=== PATIENT | male | born 1970 | race Caucasian/White ===

== ENCOUNTER 2019-04-30 07:51 | Emergency (ER) | payer BC ==
[2019-04-30 08:09] VITALS: BP 152/90
--- NOTE | 2019-04-30 08:35 | UC ---
Bite Injury/Animal HPI - HPI Summary HPI Summary: 48-year-old male comes in with a chief complaint of tick bite to the left side of his chest. He noticed the tick there this morning. Last time is on the pearl was 2 days ago. There is some erythema around the bite no fevers or chills feels well otherwise. - History of Current Complaint Chief Complaint: UCGeneralIllness Stated Complaint: TICK BITE Time Seen by Provider: 04/30/19 08:28 Pain Intensity: 0 - Allergies/Home Medications Allergies/Adverse Reactions: Allergies Allergy/AdvReac Type Severity Reaction Status Date / Time hydrocodone Allergy Nausea And Verified 04/30/19 08:01 Vomiting Penicillins Allergy Hives Verified 04/30/19 08:01 PMH/Surg Hx/FS Hx/Imm Hx Previously Healthy: Yes - Surgical History Surgical History: Yes Surgery Procedure, Year, and Place: 2004 [facility]. 05/2013 CYSTO STENT X 2 -[facility] [place]. 05/2013 CYSTO WITH STENT REMOVAL- [facility] [place]. 11/23/2012 CYSTOSCOPY LEFT RETROGRADE PYELOGRAM, LEFT URETEROSCOPY, STONE EXTRACTION, URETERAL STENT INSERTION ON LEFT, [facility] [place] - Family History Known Family History: Positive: Non-Contributory - Social History Alcohol Use: Occasionally Substance Use Type: None Smoking Status (MU): Former Smoker Amount Used/How Often: PRESENTLY CHEWS TOBACCO Have You Smoked in the Last Year: No When Did the Patient Quit Smoking/Using Tobacco: ABOUT 1996 Review of Systems All Other Systems Reviewed And Are Negative: Yes Constitutional: Positive: Negative Skin: Positive: Other - SEE HPI Eyes: Positive: Negative ENT: Positive: Negative Respiratory: Positive: Negative Cardiovascular: Positive: Negative Gastrointestinal: Positive: Negative Motor: Positive: Negative Neurovascular: Positive: Negative Musculoskeletal: Positive: Negative Neurological: Positive: Negative Psychological: Positive: Negative Is Patient Immunocompromised?: No Physical Exam Triage Information Reviewed: Yes Appearance: Well-Appearing, No Pain Distress, Well-Nourished Vital Signs: Initial Vital Signs Temp 97.8 F 04/30/19 08:05 Pulse 84 04/30/19 08:05 Resp 18 04/30/19 08:05 BP 152/90 04/30/19 08:05 Pulse Ox 98 04/30/19 08:05 Vital Signs Reviewed: Yes Eye Exam: Normal Eyes: Positive: Conjunctiva Clear Neck: Positive: Supple Respiratory: Positive: No respiratory distress Musculoskeletal: Positive: Strength Intact, ROM Intact Neurological: Positive: Alert Psychological: Positive: Normal Response To Family, Age Appropriate Behavior Skin: Positive: Other - On the left side of the chest there is a 1 cm area of deep erythema with a tick in it. I used the posterior and remove the tick completely with mouth parts. No bull's-eye rash. Bite Injury Course/Dx - Differential Dx/Diagnosis Provider Diagnosis: Tick bite of chest wall Discharge ED - Sign-Out/Discharge Documenting (check all that apply): Patient Departure All imaging exams completed and their final reports reviewed: No Studies - Discharge Plan Condition: Stable Disposition: HOME Prescriptions: DOXYcycline CAP(*) [DOXYcycline 100MG CAP(*)] 200 mg PO DAILY #2 cap Patient Education Materials: Tick Bite (ED) Referrals: Galilea Elmore MD [Primary Care Provider] - Additional Instructions: FOLLOW UP WITH YOUR DOCTOR IF NOT COMPLETELY IMPROVED. GET RECHECKED SOONER IF YOUR CONDITION WORSENS; BULLS EYE RASH, SYMPTOMS OF LYME DISEASE OR ANY QUESTIONS OR CONCERNS. - Billing Disposition and Condition Condition: STABLE Disposition: Home
== END 2019-04-30 08:50 | disposition home or self-care (01) ==
LOC: UCEAST 07:51
DX: S20.362A Insect bite (nonvenomous) of left front wall of thorax, initial encounter (principal); Z88.5 Allergy status to narcotic agent; Z88.0 Allergy status to penicillin; Z87.891 Personal history of nicotine dependence; W57.XXXA Bitten or stung by nonvenomous insect and other nonvenomous arthropods, initial encounter; Y92.9 Unspecified place or not applicable
CPT/HCPCS: 99212; G0463